=== PATIENT | male | born 1975 | race Caucasian/White ===

== ENCOUNTER → 2016-08-18 | Outpatient (REF) | LOC: ZLAB.WCH 08:50 | DX: Z01.89 Encounter for other specified special examinations (principal) ==

== ENCOUNTER → 2016-08-21 | Outpatient (REF) | LOC: ZLAB.WCH 18:07 | DX: Z01.89 Encounter for other specified special examinations (principal) ==

== ENCOUNTER → 2017-04-28 | Outpatient (REF) | LOC: ZLAB.WCH 18:07 | DX: Z01.89 Encounter for other specified special examinations (principal) ==

== ENCOUNTER 2018-10-03 21:26 | Emergency (ER) | payer BC ==
[~2018-10-03] VITALS: Ht 177.8 cm; Wt 69.1 kg
[2018-10-03 21:41] VITALS: BP 138/83; TEMP 98.9
[2018-10-03] MEDS ORDERED: SEPTRA DS 8001 TAB PO (22:18)
[2018-10-03 22:34] VITALS: PULSE 79
[2018-10-07] MEDS ORDERED: CLEOCIN HCL300 MG PO (10:28)
== END 2018-10-03 22:36 | disposition home or self-care (01) ==
LOC: COL.ER 21:26
DX: L02.31 Cutaneous abscess of buttock (principal)